=== PATIENT | female | born 1975 | race African-American/Black ===

== ENCOUNTER 2022-09-10 06:54 | Emergency (ER) | payer OTHER ==
[~2022-09-10] VITALS: Ht 170.2 cm; Wt 81.7 kg
[2022-09-10] MEDS ORDERED: INDERAL LA60 MG PO (07:27)
[2022-09-10 09:30] VITALS: BP 142/85
[2022-09-10] MEDS ORDERED: VISTARIL25 MG PO (09:32)
[2022-09-10] MEDS ORDERED: K-TAB ER20 MEQ PO (09:32)
--- NOTE | 2022-09-11 16:27 | EKG ---
[facility] [address] [facility] [place] [id number] Signed Normal sinus rhythm Prolonged QT Abnormal ECG No previous ECGs available Confirmed by HAYDEN COBB MD ([id number]) on 09/11/2022 4:27:17 PM Electronically Signed By: HAYDEN COBB MD 09/11/22 1627 PATIENT NAME: KAITLIN BOJORQUEZ Electrocardiogram DATE OF : 71 PHYSICIAN: HAYDEN COBB MD REPORT #: [id number] REPORT IS CONFIDENTIAL AND NOT TO BE RELEASED WITHOUT AUTHORIZATION
== END 2022-09-10 10:44 | disposition home or self-care (01) ==
LOC: ED 06:54
DX: S00.83XA Contusion of other part of head, initial encounter (principal); I10 Essential (primary) hypertension; Y04.2XXA Assault by strike against or bumped into by another person, initial encounter; Z88.0 Allergy status to penicillin; Z88.5 Allergy status to narcotic agent
CPT/HCPCS: 36415; 70486; 80053; 81003; 83735; 84484; 85025; 93005; 93010; J1790; J2405; J7040